=== PATIENT | male | born 1950 | race African-American/Black ===

== ENCOUNTER 2016-12-28 14:39 | Observation (INO) | payer OTHER, MEDICARE ==
[2016-12-28] VITALS (9 sets, daily range): BP systolic 90–143; BP diastolic 57–79; PULSE 58–84; RESP 14–18; TEMP 98.6; O2SAT 95–99
[~2016-12-28] VITALS: Ht 180.3 cm; Wt 80.0 kg
[~2016-12-28 14:39] MED LIST: ASPI81TA81; HYDR12.57 PO; LATA.005%O EACH EYE; LISI10TA3 PO; METH500T3 PO; TAMS0.4C4 PO
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
[2016-12-28] MEDS ORDERED: SODIUM CHLORIDE 0.9% FLUSH 10 ML FLUSH IVF PRN (15:00)
[2016-12-28 15:53] LABS: AUTOMATED NEUTROPHIL # 4.2 TH/MM3 (1.8-7.7); BASOPHIL % 0.2 % (0.0-2.0); EOSINOPHIL # 0.1 TH/MM3 (0-0.4); EOSINOPHIL % 1.3 % (0.0-4.0); HEMATOCRIT 35.9 % (39.0-51.0); LYMPH % 20.2 % (9.0-44.0); LYMPHOCYTE # 1.2 TH/MM3 (1.0-4.8); MEAN CELL VOLUME 103.2 FL (80.0-100.0); MEAN CORPUSCULAR HEMOGLOBIN 34.1 PG (27.0-34.0); MEAN CORPUSCULAR HGB CONC 33.1 % (32.0-36.0); NEUT % 73.3 % (16.0-70.0); PLATELET COUNT 214 TH/MM3 (150-450); RED BLOOD COUNT 3.48 MIL/MM3 (4.50-5.90); RED CELL DISTRIBUTION WIDTH 18.3 % (11.6-17.2); WHITE BLOOD COUNT 5.8 TH/MM3 (4.0-11.0)
[2016-12-28 15:55] LABS: ALT (GPT) 11 U/L (12-78); ANION GAP 6 MEQ/L (5-15); AST (GOT) 7 U/L (15-37); BICARBONATE 31.5 MEQ/L (21.0-32.0); BLOOD UREA NITROGEN 19 MG/DL (7-18); CHLORIDE 106 MEQ/L (98-107); GLOMERULAR FILTRATION RATE 79 ML/MIN (>89); HEMO FLAGS AUTO DIFF; MAGNESIUM 2.4 MG/DL (1.5-2.5); POTASSIUM 4.2 MEQ/L (3.5-5.1); SODIUM (NA) 143 MEQ/L (136-145)
[2016-12-28 15:58] LABS: ALKALINE PHOSPHATASE 59 U/L (45-117); TOTAL BILIRUBIN ADULT 0.4 MG/DL (0.2-1.0)
[2016-12-28 16:03] LABS: CREATINE KINASE 79 U/L (39-308)
--- NOTE | 2016-12-28 16:13 | RADRPT ---
EXAM DATE/TIME: 12/28/2016 15:24 [place] COMPARISON: CHEST SINGLE AP, June 24, 2016, 4:09. INDICATIONS : Chest pain. MEDICAL HISTORY : None. SURGICAL HISTORY : None. ENCOUNTER: Initial ACUITY: 1 day PAIN SCORE: 7/10 LOCATION: Bilateral chest FINDINGS: A single view of the chest demonstrates the lungs to be symmetrically aerated without evidence of mas s, infiltrate or effusion. The cardiomediastinal contours are unremarkable. Osseous structures are intact. CONCLUSION: Normal examination. Ton Cain MD on December 28, 2016 at 16:11 Board Certified Radiologist. This report was verified electronically.
[2016-12-28 16:37] LABS: PLATELET ESTIMATE SMEAR NORMAL (NORMAL); PLATELET MORPHOLOGY NORMAL (NORMAL); SCAN/DIFF AUTO DIFF CONFIRMED
[2016-12-28 17:35] LABS: APTT (PATIENT) 26.8 SEC (24.3-30.1); PROTHROMBIN TIME - PATIENT 10.7 SEC (9.8-11.6)
[2016-12-28] MEDS ORDERED: ONDANSETRON HCL 4 MG/2 ML VIAL IV PUSH PRN (18:45)
[2016-12-28] MEDS ORDERED: ACETAMINOPHEN 325 MG TAB PO PRN (19:45)
[2016-12-28] MEDS ORDERED: SENNOSIDES 8.6 MG TAB PO PRN (19:45)
[2016-12-28] MEDS ORDERED: MAGNESIUM HYDROXIDE SUSP 30 ML CUP PO PRN (19:45)
[2016-12-28] MEDS ORDERED: LACTULOSE SYRUP 20 GM/30 ML CUP PO PRN (19:45)
[2016-12-28] MEDS ORDERED: ONDANSETRON HCL 4 MG/2 ML VIAL IVP PRN (19:45)
[2016-12-28] MEDS ORDERED: BISACODYL 10 MG SUPP RECTAL PRN (19:45)
[2016-12-28] MEDS ORDERED: ACETAMINOPHEN/HYDROcodone 325 MG/5 MG TAB PO PRN (19:45)
[2016-12-28] MEDS ORDERED: NITROGLYCERIN 2% OINT 1 GM PACKET TOPICAL PRN (19:45)
[2016-12-28] MEDS ORDERED: SODIUM CHLORIDE 0.9% FLUSH 10 ML FLUSH IV FLUSH PRN (19:45)
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
[2016-12-28] MEDS: TAMSULOSIN HCL 0.4 MG CAP PO SCH (20:48)
[2016-12-28] MEDS: DOCUSATE SODIUM 50 MG/SENNA 8.6 MG TAB PO SCH (20:50)
[2016-12-28] MEDS: MORPHINE SULFATE 4 MG/ML INJ IV PRN (20:50)
[2016-12-28] MEDS: SODIUM CHLORIDE 0.9% FLUSH 10 ML FLUSH IV FLUSH SCH (20:52)
[2016-12-28] MEDS: LATANOPROST 0.005% OPHT SOLN 2.5 ML BTL EACH EYE SCH (21:00)
[2016-12-28] MEDS ORDERED: RESP: ALBUTEROL 2.5 MG/IPRATROPIUM 0.5 MG NEB (PRN) NEB (21:45)
[2016-12-29] VITALS (10 sets, daily range): BP systolic 98–137; BP diastolic 53–68; PULSE 61–76; RESP 14–20; TEMP 96.8–98.6; O2SAT 95–98
[2016-12-29 07:48] LABS: AUTOMATED NEUTROPHIL # 2.2 TH/MM3 (1.8-7.7); BASOPHIL % 0.2 % (0.0-2.0); EOSINOPHIL # 0.1 TH/MM3 (0-0.4); EOSINOPHIL % 1.9 % (0.0-4.0); HEMATOCRIT 32.2 % (39.0-51.0); HEMO FLAGS DIFF FINAL; LYMPH % 36.2 % (9.0-44.0); LYMPHOCYTE # 1.5 TH/MM3 (1.0-4.8); MEAN CELL VOLUME 103.1 FL (80.0-100.0); MEAN CORPUSCULAR HEMOGLOBIN 34.1 PG (27.0-34.0); MEAN CORPUSCULAR HGB CONC 33.1 % (32.0-36.0); MONO % 6.2 % (0.0-8.0); NEUT % 55.5 % (16.0-70.0); PLATELET COUNT 187 TH/MM3 (150-450); RED BLOOD COUNT 3.13 MIL/MM3 (4.50-5.90); RED CELL DISTRIBUTION WIDTH 18.2 % (11.6-17.2)
[2016-12-29 08:10] LABS: ALT (GPT) 11 U/L (12-78); ANION GAP 9 MEQ/L (5-15); BICARBONATE 28.1 MEQ/L (21.0-32.0); BLOOD UREA NITROGEN 23 MG/DL (7-18); CHLORIDE 105 MEQ/L (98-107); POTASSIUM 4.2 MEQ/L (3.5-5.1); SODIUM (NA) 142 MEQ/L (136-145)
[2016-12-29 08:11] LABS: AST (GOT) 8 U/L (15-37); GLOMERULAR FILTRATION RATE 85 ML/MIN (>89)
[2016-12-29 08:38] LABS: ALKALINE PHOSPHATASE 48 U/L (45-117); HDL CHOLESTEROL 53.7 MG/DL (40.0-60.0); LDL CHOLESTEROL 45 MG/DL (0-99); TOTAL BILIRUBIN ADULT 0.4 MG/DL (0.2-1.0)
[2016-12-29] MEDS: ASPIRIN EC 81 MG TABEC PO SCH (08:59)
[2016-12-29] MEDS: DOCUSATE SODIUM 50 MG/SENNA 8.6 MG TAB PO SCH ×2 (08:59→20:31)
[2016-12-29] MEDS: PRAVASTATIN SOD 40 MG TAB PO SCH (08:59)
[2016-12-29] MEDS: LISINOPRIL 10 MG TAB PO SCH (09:00)
[2016-12-29] MEDS: METOPROLOL TARTRATE 25 MG TAB PO SCH ×2 (09:00→20:31)
[2016-12-29] MEDS: SODIUM CHLORIDE 0.9% FLUSH 10 ML FLUSH IV FLUSH SCH ×2 (09:00→20:30)
[2016-12-29] MEDS: MORPHINE SULFATE 4 MG/ML INJ IV PRN ×2 (09:53→20:32)
--- NOTE | 2016-12-29 12:02 | HHI.PR ---
Subjective Remarks Follow up for chest pain. The patient reports continued ongoing chest pressure located at the left anterior chest, associated with nausea but no vomiting, diaphoresis, or shortness of breath. He is concerned that he has another "blockage". The patient does reports URI 2 weeks ago, coughing a lot with yellow -green sputum however now resolved. He denies any current cough. Denies any worsening chest pain with deep inspiration. Objective Vitals Vital Signs Date Time Temp Pulse Resp B/P Pulse Ox O2 Delivery O2 Flow Rate FiO2 12/29/16 08:25 68 12/29/16 08:17 98.0 65 20 137/68 95 12/29/16 03:32 98.2 61 18 98/53 98 12/28/16 23:26 98.6 68 18 117/70 95 12/28/16 21:28 16 12/28/16 21:02 84 12/28/16 20:35 84 18 143/73 99 12/28/16 19:47 80 16 118/79 99 Room Air 12/28/16 19:30 97 12/28/16 18:47 58 15 112/67 97 Room Air 12/28/16 18:07 68 14 90/57 97 Room Air 12/28/16 15:00 112/71 12/28/16 14:54 20 12/28/16 14:49 71 14 105/66 99 Result Diagram: 12/29/16 0728 12/29/16 0728 Imaging Last Impressions Chest X-Ray 12/28/16 1453 Signed Impressions: Service Date/Time: Wednesday, December 28, 2016 15:24 - CONCLUSION: Normal examination. Ton Cain MD Objective Remarks GENERAL: Well-nourished, well-developed middle aged AA male patient in [facility]. SKIN: Warm and dry. No rash. HEENT: Normocephalic. Atraumatic.Pupils equal and round. Mucous membranes pink and moist. NECK: Supple. Trachea midline. CARDIOVASCULAR: Regular rate and rhythm. S1, S2 noted. No murmur appreciated. No chest wall tenderness to palpation. RESPIRATORY: No accessory muscle use. Clear to auscultation. Breath sounds equal bilaterally. GASTROINTESTINAL: Abdomen soft, non-tender, nondistended. Normoactive bowel sounds x4. MUSCULOSKELETAL: No obvious deformities. Extremities without clubbing, cyanosis , or edema. NEUROLOGICAL: Awake and alert. No obvious cranial nerve deficits. Motor grossly within normal limits. Normal speech. PSYCHIATRIC: Appropriate mood and affect; insight and judgment normal. Medications and IVs Current Medications Medications (Trade) Dose Ordered Sig/Jim Route Start Time Stop Time Status Last Admin (Ecotrin Ec) 81 mg DAILY PO 12/29/16 09:00 12/29/16 08:59 (Pravachol) 40 mg DAILY PO 12/29/16 09:00 12/29/16 08:59 (NS Flush) 2 ml UNSCH PRN IV FLUSH 12/28/16 19:45 (NS Flush) 2 ml BID IV FLUSH 12/28/16 21:00 12/29/16 09:00 (Zofran Inj) 4 mg Q6H PRN IVP 12/28/16 19:45 (Tylenol) 650 mg Q6H PRN PO 12/28/16 19:45 (Cataldo 5-325 Mg) 1 tab Q4H PRN PO 12/28/16 19:45 (Morphine Inj) 2 mg Q3H PRN IV 12/28/16 19:45 12/29/16 09:53 (Dee-Colace) 1 tab BID PO 12/28/16 21:00 12/29/16 08:59 (Milk Of Magnesia Liq) 30 ml Q12H PRN PO 12/28/16 19:45 (Senokot) 17.2 mg Q12H PRN PO 12/28/16 19:45 (Dulcolax Supp) 10 mg DAILY PRN RECTAL 12/28/16 19:45 (Lactulose Liq) 30 ml DAILY PRN PO 12/28/16 19:45 (Nitroglycerin 2% Oint) 0.5 inch Q6HR PRN TOPICAL 12/28/16 19:45 12/28/16 20:04 (Xalatan 0.005% Opth Soln) 1 drop HS EACH EYE 12/28/16 21:00 (Prinivil) 10 mg DAILY PO 12/29/16 09:00 12/29/16 09:00 (Flomax) 0.4 mg HS PO 12/28/16 21:00 12/28/16 20:48 (Lopressor) 12.5 mg Q12HR PO 12/29/16 09:00 12/29/16 09:00 A/P Problem List: (1) Chest pain ICD Code: R07.9 Status: Acute (2) Dehydration ICD Code: E86.0 Status: Acute (3) COPD (chronic obstructive pulmonary disease) ICD Code: J44.9 Status: Chronic (4) Tobacco abuse ICD Code: Z72.0 Status: Acute Assessment and Plan 66-year-old male with a PMH of HTN, COPD, Leukemia, CAD and Tobacco Abuse who presented to the ER with complaints of chest pain starting earlier today. Chest Pain: Acute onset of substernal chest pain, h/o CAD, improved after NTG. ACS ruled out with negative serial cardiac enzymes x3, EKG without acute ischemic changes. Last Cath w/ mild one-vessel disease, normal LF function w/ EF 50% and recommendation for med management. Resume home medications, ASA, Statin, B-junior. NTG/Morphine prn. Patient with ongoing chest pain today, Consult Cardiology. Dehydration: GFR 79, BUN 19, Creatinine normal. IVF for hydration, repeat labs with mild improvement. Avoid nephrotoxins. COPD: Chronic Respiratory Failure. Stable. DuoNeb prn if needed. Tobacco Abuse: Pt counselled. Ativan prn if needed. No NicoDerm to avoid vasoconstriction. DVT Prophylaxis: SCD/Teds. Discharge Planning Await cardiology evaluation. Abby Sánchez PA-C Dec 29, 2016 12:02 pm
--- NOTE | 2016-12-29 12:03 | EKG ---
Date Performed: 12/28/2016 Time Performed: 21:31:34 PTAGE: 66 years EKG: Sinus rhythm NONSPECIFIC T-WAVE ABNORMALITY Since previous tracing, no significant change noted BORDERLINE ECG PREVIOUS TRACING : 12/28/2016 18.36 DOCTOR: Gurpreet Díaz Interpretating Date/Time 12/29/2016 12:01:24
--- NOTE | 2016-12-29 12:03 | EKG ---
Date Performed: 12/28/2016 Time Performed: 18:36:01 PTAGE: 66 years EKG: SINUS BRADYCARDIA NONSPECIFIC T-WAVE ABNORMALITY Since previous tracing, no significant yuniel nge noted BORDERLINE ECG PREVIOUS TRACING : 12/28/2016 14.54 DOCTOR: Gurpreet Díaz Interpretating Date/Time 12/29/2016 12:01:42
--- NOTE | 2016-12-29 12:05 | EKG ---
Date Performed: 12/28/2016 Time Performed: 14:54:49 PTAGE: 66 years EKG: Sinus rhythm Since previous tracing, no significant change noted NORMAL ECG PREVIOUS TRACING : 06/24/2016 09.47 DOCTOR: Gurpreet Díaz Interpretating Date/Time 12/29/2016 12:04:02
--- NOTE | 2016-12-29 14:49 | MB ---
cc: ARELY COBB MD DATE OF CONSULTATION: 12/29/2016. REASON FOR CONSULTATION: Atypical chest pain and right lower extremity edema. HISTORY OF PRESENT ILLNESS: The patient is a very pleasant 66-year-old gentleman who was on bus today when he began having significant right lower extremity edema as well as some chest pressure. Because of these symptoms he presented to the emergency department and was given Lasix and his symptoms have resolved. He is asking for a stress test. He is currently asymptomatic except for a headache following nitroglycerin. No residual chest discomfort, shortness of breath, lightheadedness or dizziness. Of note, Dr. White performed a cardiac catheterization in April of 2015, which showed only mild one-vessel coronary disease. PAST MEDICAL HISTORY: 1. Only mild coronary disease by cardiac catheterization 04/2015. 2. Hypertension. 3. Leukemia. 4. Tobacco abuse. CURRENT MEDICATIONS: 1. Aspirin 81 milligrams daily. 2. Pravachol 40 milligrams daily. 3. Lisinopril 10 milligrams daily. 4. Lopressor 12.5 milligrams twice a day. ALLERGIES: 1. PENICILLIN. 2. ZOLOFT. PHYSICAL EXAMINATION: VITAL SIGNS: Afebrile, pulse 76, respiratory rate 18, blood pressure 117/60 and satting 96 on 2 liters. GENERAL: Pleasant well-appearing -[place] gentleman in no distress. NECK: No JVD. LUNGS: Clear auscultation bilaterally. CARDIOVASCULAR: Regular rhythm. No murmurs appreciated. ABDOMEN: Benign. EXTREMITIES: Trace right lower extremity edema. EKGS: EKG shows sinus rhythm with minor nonspecific S-T changes. LABORATORY DATA Notable for cardiac enzymes negative x3. Sodium 142, potassium 4.2, chloride 105, bicarbonate 20.1, BUN 23, creatinine 1.06, glucose 91. INR is 1.0. White count 4.0, hematocrit 32.2, platelets 187,000. IMAGING STUDIES: Chest x-ray was normal. IMPRESSION: 1. Chest pain. The patient's chest pain is somewhat atypical. He has already had a cardiac catheterization about a year and half ago which showed only mild disease and it is very unlikely he has developed occlusive disease in that time interval. He is requesting a nuclear stress test and I will have this done for him. I will also obtain a CT of the chest to exclude pulmonary embolism given the unilateral lower extremity edema. I will also have his right lower extremity ultrasounded to exclude DVT. If these tests are normal, he could be [facility] Thank you again for the opportunity to participate in this patient's care. MD CHAD Mcintosh/CHAD /2:09 PM /2:45 PM
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
[2016-12-29] MEDS ORDERED: IOHEXOL 350 MG/ML 10 ML VIAL (for RAD DIAG) IV ONE (17:36)
--- NOTE | 2016-12-29 17:46 | RADRPT ---
EXAM DATE/TIME: 12/29/2016 17:30 [facility] COMPARISON: No previous studies available for comparison. INDICATIONS : Chest pain left side and swelling of the leg. IV CONTRAST: 72 cc Omnipaque 350 (iohexol) IV RADIATION DOSE: 9.48 CTDIvol (mGy) MEDICAL HISTORY : Cardiovascular disease. Cerebrovascular disease. Hypertension.Leukemia, TB. SURGICAL HISTORY : None. ENCOUNTER: Initial ACUITY: 2 days PAIN SCALE: 6/10 LOCATION: Left chest TECHNIQUE: Volumetric scanning of the chest was performed using a pulmonary embolism protocol MIP images were re constructed. Using automated exposure control and adjustment of the mA and/or kV according to patien t size, radiation dose was kept as low as reasonably achievable to obtain optimal diagnostic quality images. DICOM format image data is available electronically for review and comparison. FINDINGS: PULMONARY ARTERIES: No filling defects are seen in the pulmonary arteries through the segmental level. LUNGS: There is a 4 mm nodule in the superior segment of the left lower lobe and a 2 mm nodule in the latera l right middle lobe region. PLEURAE: There is no pleural thickening or pleural effusion. MEDIASTINUM: There is good visualization of the great vessels of the middle mediastinum. No evidence of mediastin al or hilar adenopathy/mass. MUSCULOSKELETAL: Within normal limits for patient age. MISCELLANEOUS: The visualized upper abdominal organs demonstrate no acute abnormality. CONCLUSION: 1. No pulmonary embolus. 2. Small bilateral pulmonary nodules. These can be followed with a noncontrast CT examination in 6 mo nths. Ton Cain MD on December 29, 2016 at 17:39 Board Certified Radiologist. This report was verified electronically.
[2016-12-29] MEDS: LATANOPROST 0.005% OPHT SOLN 2.5 ML BTL EACH EYE SCH (20:30)
[2016-12-29] MEDS: TAMSULOSIN HCL 0.4 MG CAP PO SCH (20:31)
[2016-12-30 04:15] VITALS: BP 110/56; PULSE 58; RESP 16; TEMP 98.1; O2SAT 97
[2016-12-30 07:51] VITALS: BP 119/59; PULSE 58; RESP 20; TEMP 97.3; O2SAT 99
[2016-12-30] MEDS ORDERED: SODIUM CHLOR 0.9% 1000 ML INJ 1,000 ML IV SCH (08:00)
[2016-12-30] MEDS ORDERED: REGADENOSON INJ 0.4 MG/5 ML SYR ONE (09:07)
--- NOTE | 2016-12-30 10:30 | HHI.PR ---
Subjective Remarks Follow-up for chest pain. The patient seen after stress test this morning, results pending. The patient reports significant improvement in chest pain since yesterday. He states his shortness of breath is at baseline. He does continue to smoke. He follows [place] [facility]. He does report a recent upper respiratory infection, with resolution of symptoms. The patient takes tramadol for chronic back pain. Objective Vitals Vital Signs Date Time Temp Pulse Resp B/P Pulse Ox O2 Delivery O2 Flow Rate FiO2 12/30/16 07:51 97.3 58 20 119/59 99 12/30/16 04:15 98.1 58 16 110/56 97 12/29/16 23:41 98.6 62 16 121/66 95 12/29/16 20:12 62 12/29/16 19:47 97.7 65 14 124/60 96 12/29/16 19:30 96 12/29/16 15:46 98.2 76 20 118/60 95 12/29/16 12:15 96.8 76 18 117/60 96 12/29/16 10:48 95 21 I/O 12/29/16 12/29/16 12/29/16 12/30/16 12/30/16 12/30/16 07:00 15:00 23:00 07:00 15:00 23:00 Intake Total 960 ml Output Total 1400 ml Balance -440 ml Intake Oral 960 ml Output Urine Total 1400 ml # Voids 1 1 Result Diagram: 12/29/16 0728 12/29/16 0728 Imaging Last Impressions Lower Extremity Ultrasound 12/29/16 0000 Signed Impressions: Service Date/Time: Thursday, December 29, 2016 14:53 - CONCLUSION: No DVT. Ton Cain MD CT Angiography 12/29/16 0000 Signed Impressions: Service Date/Time: Thursday, December 29, 2016 17:30 - CONCLUSION: 1. No pulmonary embolus. 2. Small bilateral pulmonary nodules. These can be followed with a noncontrast CT examination in 6 months. Ton Cain MD Chest X-Ray 12/28/16 1453 Signed Impressions: Service Date/Time: Wednesday, December 28, 2016 15:24 - CONCLUSION: Normal examination. Ton Cain MD Objective Remarks GENERAL: Well-developed well-nourished. In no acute distress. SKIN: Warm and dry. No lesions noted. HEENT: Normocephalic. Pupils equal and round. Mucous membranes pink and moist. CARDIOVASCULAR: Regular rate and rhythm. No murmur appreciated. RESPIRATORY: No accessory muscle use. Clear to auscultation. Breath sounds equal bilaterally. GASTROINTESTINAL: Abdomen soft, non-tender, nondistended. Bowel sounds x4. MUSCULOSKELETAL: No obvious deformities. No clubbing or cyanosis. No edema. NEUROLOGICAL: Awake and alert. Moves upper and lower extremities spontaneously. Normal speech. PSYCHIATRIC: Appropriate mood and affect; insight and judgment normal. A/P Problem List: (1) Chest pain ICD Code: R07.9 Status: Acute (2) Dehydration ICD Code: E86.0 Status: Acute (3) COPD (chronic obstructive pulmonary disease) ICD Code: J44.9 Status: Chronic (4) Tobacco abuse ICD Code: Z72.0 Status: Acute Assessment and Plan 66-year-old male with a PMH of HTN, COPD, Leukemia, CAD and Tobacco Abuse who presented to the ER with complaints of chest pain starting earlier today. Chest Pain: Acute onset of substernal chest pain, h/o CAD, improved after NTG. ACS ruled out with negative serial cardiac enzymes x3, EKG without acute ischemic changes. Last Cath w/ mild one-vessel disease, normal LF function w/ EF 50% and recommendation for med management. Continue ASA. Started B-junior. Lipid panel reviewed with low LDL. Continued chest pain today, continue NTG, change Morphine prn to Tramadol. Cardiology consulted who recommended stress test and pulmonary angiogram. Pulmonary angiogram with a PE. Stress test results pending. Pulmonary nodule: Chest CT showed small bilateral pulmonary nodules with recommendation for repeat CT in 6 months. Patient made aware of the findings and recommendation for outpatient CT. Hypertension: Stop HCTZ and start metoprolol as above. Continue lisinopril and Flomax. Dehydration: GFR 79, BUN 19, Creatinine normal. IVF for hydration, repeat labs with mild improvement. Avoid nephrotoxins. COPD: Chronic, stable. DuoNeb prn if needed. Tobacco Abuse: Counseled patient on cessation. Chronic back pain: Continue tramadol as needed. [facility]up [facility]. DVT Prophylaxis: SCD/Teds. Discharge Planning Possible discharge for PCP and cardiology follow-up with the [facility] if stress test is nonischemic. 1110 stress test with no definite redistribution. Discussed with cardiology, Dr. Arboleda, recommended medical management and [facility] follow[facility]. Discharge home today in stable condition. Tyler Lei Dec 30, 2016 10:29
--- NOTE | 2016-12-30 10:31 | RADRPT ---
EXAM DATE/TIME: 12/30/2016 08:30 [facility] COMPARISON: MYOCARDIAL PERF PHARM SPECT, GATED W/EF, April 29, 2015, 11:55. INDICATIONS : Atypical chest pain. Coronary artery disease. DOSE: 26.2 mCi Tc99m Myoview at stress. 8.1 mCi Tc99m Myoview at rest. 0.4 mg Lexiscan STRESS SYMPTOMS: Shortness of breath. EJECTION FRACTION: 57% MEDICAL HISTORY : Hypertension. Stroke Leukemia. SURGICAL HISTORY : Coronary artery stent. Thyroidectomy. ENCOUNTER: Initial ACUITY: 1 day PAIN SCALE: 3/10 LOCATION: Bilateral chest TECHNIQUE: The patient underwent pharmacologic stress with infusion of prescribed dose. Continuous ECG tracing was monitored during stress. Gated SPECT imaging was performed after stress and conventional SPECT i maging was performed at rest. The examination was performed on a SPECT/CT scanner, both attenuation and non-corrected datasets were reviewed. FINDINGS: DISTRIBUTION: The maximum perfused segment at stress is in the posterior basal wall. PERFUSION STUDY: There is moderately diminished relative radiotracer accumulation in the inferior wall and cardiac ape x. No convincing redistribution. GATED STUDY: There is intact wall motion and thickening without hypokinetic or dyskinetic segments. CONCLUSION: Small to moderate size moderate severity inferior and apical perfusion abnormality without definite r edistribution. RISK CATEGORY: Intermediate (1-3% Annual Mortality Rate) Ton Rock MD on December 30, 2016 at 10:21 Board Certified Radiologist. This report was verified electronically.
[2016-12-30] MEDS: MORPHINE SULFATE 4 MG/ML INJ IV PRN (10:59)
[2016-12-30 11:04] VITALS: RESP 20
[2016-12-30] MEDS: DOCUSATE SODIUM 50 MG/SENNA 8.6 MG TAB PO SCH (11:08)
[2016-12-30] MEDS: PRAVASTATIN SOD 40 MG TAB PO SCH (11:08)
[2016-12-30] MEDS: METOPROLOL TARTRATE 25 MG TAB PO SCH (11:09)
[2016-12-30] MEDS: ASPIRIN EC 81 MG TABEC PO SCH (11:09)
[2016-12-30] MEDS: LISINOPRIL 10 MG TAB PO SCH (11:09)
[2016-12-30] MEDS ORDERED: METO25TA3 PO (11:13)
[2016-12-30] MEDS ORDERED: TRAM50TA PO (11:35)
[2016-12-30] MEDS ORDERED: traMADol HCL 50 MG TAB PO PRN (13:30)
[2016-12-30 16:06] VITALS: PULSE 58
== END 2016-12-30 15:42 | disposition home or self-care (01) ==
LOC: NEPC 14:39 → NEDA 18:03 → NEPHCDU 20:18
PROVIDERS: ADMIT Hospitalist; ATTEND Hospitalist
DX: R07.89 Other chest pain (principal); E86.0 Dehydration; R06.02 Shortness of breath; R91.8 Other nonspecific abnormal finding of lung field; D64.9 Anemia, unspecified; R00.1 Bradycardia, unspecified; R11.0 Nausea; R60.0 Localized edema; I25.119 Atherosclerotic heart disease of native coronary artery with unspecified angina pectoris; I10 Essential (primary) hypertension; E78.00 Pure hypercholesterolemia, unspecified; J44.9 Chronic obstructive pulmonary disease, unspecified; J96.10 Chronic respiratory failure, unspecified whether with hypoxia or hypercapnia; E89.0 Postprocedural hypothyroidism; K21.9 Gastro-esophageal reflux disease without esophagitis; F32.9 Major depressive disorder, single episode, unspecified; F43.10 Post-traumatic stress disorder, unspecified; M54.9 Dorsalgia, unspecified; G89.29 Other chronic pain; H40.9 Unspecified glaucoma; N40.1 Benign prostatic hyperplasia with lower urinary tract symptoms; R32 Unspecified urinary incontinence; M19.90 Unspecified osteoarthritis, unspecified site; F17.200 Nicotine dependence, unspecified, uncomplicated; Z95.5 Presence of coronary angioplasty implant and graft; Z86.73 Personal history of transient ischemic attack (TIA), and cerebral infarction without residual deficits; Z79.899 Other long term (current) drug therapy; Z79.82 Long term (current) use of aspirin; Z79.01 Long term (current) use of anticoagulants; Z93.3 Colostomy status; Z85.6 Personal history of leukemia; Z86.11 Personal history of tuberculosis
CPT/HCPCS: 71010; 71275; 76937; 78452; 80053; 80061; 82550; 82607; 83735; 84484; 85025; 85610; 85730; 93005; 93017; 93971; 97161; 99285; A9502; G0378; G8987; G8988; J2270; J2785; J7030; Q9967

== ENCOUNTER 2016-12-30 17:06 | Observation (INO) | payer MEDICARE, OTHER ==
[~2016-12-30] VITALS: Ht 175.3 cm; Wt 84.0 kg
[~2016-12-30 17:06] MED LIST changes: +METO25TA3 PO; +TRAM50TA PO
[2016-12-30 17:16] VITALS: BP 122/59; PULSE 57; RESP 16; TEMP 98.3; O2SAT 95
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
[2016-12-30] MEDS ORDERED: SODIUM CHLORIDE 0.9% FLUSH 10 ML FLUSH IVF PRN (17:30)
[2016-12-30 17:50] VITALS: O2SAT 98
--- NOTE | 2016-12-30 17:54 | RADRPT ---
EXAM DATE/TIME: 12/30/2016 17:46 [facility] COMPARISON: CHEST SINGLE AP, December 28, 2016, 15:24. INDICATIONS : Chest pain. MEDICAL HISTORY : None. SURGICAL HISTORY : None. ENCOUNTER: Initial ACUITY: 3 days PAIN SCORE: 9/10 LOCATION: middle chest. FINDINGS: A single view of the chest demonstrates the lungs to be symmetrically aerated without evidence of mas s, infiltrate or effusion. The cardiomediastinal contours are unremarkable. Osseous structures are intact. CONCLUSION: No acute disease. Mihir Gresham MD FACR on December 30, 2016 at 17:51 Board Certified Radiologist. This report was verified electronically.
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
[2016-12-30 18:42] LABS: HEMATOCRIT 35.2 % (39.0-51.0); MEAN CELL VOLUME 106.1 FL (80.0-100.0); MEAN CORPUSCULAR HEMOGLOBIN 33.8 PG (27.0-34.0); MEAN CORPUSCULAR HGB CONC 31.9 % (32.0-36.0); PLATELET COUNT 192 TH/MM3 (150-450); RED BLOOD COUNT 3.32 MIL/MM3 (4.50-5.90); RED CELL DISTRIBUTION WIDTH 18.2 % (11.6-17.2); WHITE BLOOD COUNT 7.1 TH/MM3 (4.0-11.0)
[2016-12-30 18:43] LABS: HEMO FLAGS AUTO DIFF
[2016-12-30 18:50] LABS: APTT (PATIENT) 20.6 SEC (24.3-30.1); PROTHROMBIN TIME - PATIENT 10.7 SEC (9.8-11.6)
[2016-12-30 19:16] LABS: ALKALINE PHOSPHATASE 54 U/L (45-117); ALT (GPT) 17 U/L (12-78); ANION GAP 6 MEQ/L (5-15); AST (GOT) 13 U/L (15-37); BICARBONATE 32.6 MEQ/L (21.0-32.0); BLOOD UREA NITROGEN 19 MG/DL (7-18); CHLORIDE 102 MEQ/L (98-107); GLOMERULAR FILTRATION RATE 75 ML/MIN (>89); MAGNESIUM 2.2 MG/DL (1.5-2.5); POTASSIUM 3.9 MEQ/L (3.5-5.1); SODIUM (NA) 141 MEQ/L (136-145); TOTAL BILIRUBIN ADULT 0.3 MG/DL (0.2-1.0)
[2016-12-30 19:24] LABS: CORRECTED NUCLEATED RBC 1 /100 WBC (0-0); EOSINOPHILS 2 % (0-4); NEUTROPHIL # MANUAL DIFF 4.8 TH/MM3 (1.8-7.7); PLATELET ESTIMATE SMEAR NORMAL (NORMAL); PLATELET MORPHOLOGY NORMAL (NORMAL); POLYS (SEG NEUTROPHILS) 68 % (16-70); SCAN/DIFF FINAL DIFF MANUAL; WBC DIFF SAMPLE 100
[2016-12-30 19:37] VITALS: BP 110/63; PULSE 74; RESP 20; O2SAT 98
[2016-12-30] MEDS ORDERED: traMADol HCL 50 MG TAB PO PRN (20:00)
[2016-12-30] MEDS ORDERED: SODIUM CHLORIDE 0.9% FLUSH 10 ML FLUSH IV FLUSH PRN (20:00)
[2016-12-30] MEDS ORDERED: NALOXONE HCL 0.4 MG/ML AMP IV PRN (20:00)
[2016-12-30] MEDS: TAMSULOSIN HCL 0.4 MG CAP PO SCH (21:00)
[2016-12-30] MEDS: SODIUM CHLORIDE 0.9% FLUSH 10 ML FLUSH IV FLUSH SCH (21:00)
[2016-12-30 23:22] VITALS: BP 109/53; PULSE 68; RESP 18; TEMP 98; O2SAT 97
[2016-12-31] VITALS (8 sets, daily range): BP systolic 97–144; BP diastolic 50–72; PULSE 55–80; RESP 16–20; TEMP 97.7–98.5; O2SAT 96–100
[2016-12-31] MEDS ORDERED: ACETAMINOPHEN 325 MG TAB PO PRN (07:30)
[2016-12-31 07:33] LABS: AUTOMATED NEUTROPHIL # 2.7 TH/MM3 (1.8-7.7); BASOPHIL % 0.3 % (0.0-2.0); EOSINOPHIL # 0.1 TH/MM3 (0-0.4); EOSINOPHIL % 1.7 % (0.0-4.0); HEMATOCRIT 33.9 % (39.0-51.0); HEMO FLAGS DIFF FINAL; LYMPH % 32.9 % (9.0-44.0); LYMPHOCYTE # 1.5 TH/MM3 (1.0-4.8); MEAN CELL VOLUME 103.8 FL (80.0-100.0); MEAN CORPUSCULAR HEMOGLOBIN 34.4 PG (27.0-34.0); MEAN CORPUSCULAR HGB CONC 33.2 % (32.0-36.0); MONO % 6.2 % (0.0-8.0); NEUT % 58.9 % (16.0-70.0); PLATELET COUNT 177 TH/MM3 (150-450); RED BLOOD COUNT 3.26 MIL/MM3 (4.50-5.90); RED CELL DISTRIBUTION WIDTH 18.2 % (11.6-17.2); WHITE BLOOD COUNT 4.7 TH/MM3 (4.0-11.0)
[2016-12-31 07:53] LABS: BICARBONATE 31.1 MEQ/L (21.0-32.0); POTASSIUM 4.2 MEQ/L (3.5-5.1)
[2016-12-31] MEDS ORDERED: LISINOPRIL 10 MG TAB PO SCH (09:00)
--- NOTE | 2016-12-31 09:55 | HHI.HP ---
[facility] Primary Care Physician Unknown Admission Diagnosis Syncope vs Seizure Diagnoses: Travel History International Travel<30 Days: No Contact w/Intl Traveler <30 Da: No Traveled to Known Affected Are: No History of Present Illness Mr. Puentes is a 66 year old male. He was admitted secondary to a syncopal episode. She had previously been hospitalized for chest pain workup which was negative. He was discharged yesterday and upon arriving to his [facility]pc she had a syncopal episode with loss of bowel and bladder. He has no prior history of seizures. Etiology may be related to beta junior which was a new treatment for him. Today he is feeling back to his baseline. No reports of chest pain. No trauma. He has a pending echocardiogram and a pending carotid ultrasound Doppler. Orthostatic blood pressure checks are also pending. Review of Systems Constitutional: DENIES: Fatigue, Fever, Weight loss, Chills Eyes: DENIES: Blurred vision, Diplopia, Eye pain, Vision loss Ears, nose, mouth, throat: DENIES: Tinnitus, Hearing loss, Vertigo Respiratory: DENIES: Cough, Wheezing, Shortness of breath Cardiovascular: COMPLAINS OF: Syncope, DENIES: Chest pain, Palpitations Gastrointestinal: DENIES: Abdominal pain, Black stools, Bloody stools Musculoskeletal: DENIES: Joint pain, Muscle aches Integumentary: DENIES: Abnormal pigmentation Hematologic/lymphatic: DENIES: Bruising Immunologic/allergic: DENIES: Eczema Neurologic: DENIES: Abnormal gait Psychiatric: DENIES: Anxiety, Confusion Past Family Social History Past Medical History Hypertension COPD leukemia history coronary artery disease Past Surgical History Cardiac stent Thyroidectomy Reported Medications Reported Meds & Active Scripts Active Tramadol (Tramadol HCl) 50 Mg Tab 50 Mg PO Q8H PRN Metoprolol Tartrate 25 Mg Tab 12.5 Mg PO Q12HR Reported Methocarbamol Unknown Strength Tab Unknown Dose PO QID Xalatan Opth Drops (Latanoprost) 0.005% Drops 1 Drop EACH EYE HS Aspir-81 (Aspirin) 81 Mg Tabdr Tamsulosin (Tamsulosin HCl) 0.4 Mg Cap 0.4 Mg PO HS Lisinopril 10 Mg Tab 10 Mg PO DAILY Allergies: Coded Allergies: Penicillin (Verified Allergy, Severe, Anaphylaxis, 12/28/16) Zoloft (Verified Allergy, Intermediate, Swelling, 12/28/16) Active Ordered Medications Administered Medications Medications (Trade) Dose Ordered Sig/Jim Route PRN Reason Start Time Stop Time Status Last Admin Dose Admin Sodium Chloride (NS Flush) 2 ml BID IV FLUSH 12/30/16 21:00 12/30/16 21:00 Tamsulosin HCl (Flomax) 0.4 mg HS PO 12/30/16 21:00 12/30/16 21:00 Family History None, no diabetes or coronary artery disease Social History Occasional alcohol use Smoking one half pack per day No drug abuse Physical Exam Vital Signs Vital Signs Date Time Temp Pulse Resp B/P Pulse Ox O2 Delivery O2 Flow Rate FiO2 12/31/16 07:27 97.7 69 20 109/58 97 12/31/16 05:23 97.8 55 16 97/50 98 12/31/16 00:37 78 12/30/16 23:22 98.0 68 18 109/53 97 12/30/16 19:37 74 20 110/63 98 Nasal Cannula 12/30/16 17:50 98 Room Air 12/30/16 17:16 98.3 57 16 122/59 95 Physical Exam GENERAL: NAD, A&Ox3 HEAD: Normocephalic. NECK: Supple, trachea midline. No lymphadenopathy. EYES: No scleral icterus. No injection or drainage. CARDIOVASCULAR: Regular rate and rhythm without murmurs, gallops, or rubs. RESPIRATORY: Breath sounds equal bilaterally. No accessory muscle use. GASTROINTESTINAL: Abdomen soft, non-tender, nondistended. MUSCULOSKELETAL: No cyanosis, or edema. SKIN: Warm and dry. NEURO: No focal neurological deficitis. Laboratory Laboratory Tests Test 12/30/16 12/31/16 18:20 06:40 White Blood Count 7.1 4.7 Red Blood Count 3.32 3.26 Hemoglobin 11.2 11.2 Hematocrit 35.2 33.9 Mean Corpuscular Volume 106.1 103.8 Mean Corpuscular Hemoglobin 33.8 34.4 Mean Corpuscular Hemoglobin 31.9 33.2 Concent Red Cell Distribution Width 18.2 18.2 Platelet Count 192 177 Mean Platelet Volume 8.9 8.7 Neutrophils (%) (Auto) 58.9 Lymphocytes (%) (Auto) 32.9 Monocytes (%) (Auto) 6.2 Eosinophils (%) (Auto) 1.7 Basophils (%) (Auto) 0.3 Neutrophils # (Auto) 2.7 Lymphocytes # (Auto) 1.5 Monocytes # (Auto) 0.3 Eosinophils # (Auto) 0.1 Basophils # (Auto) 0.0 CBC Comment AUTO DIFF DIFF FINAL Differential Total Cells 100 Counted Neutrophils % (Manual) 68 Lymphocytes % 25 Monocytes % 5 Eosinophils % 2 Neutrophils # (Manual) 4.8 Nucleated Red Blood Cells 1 Differential Comment FINAL DIFF MANUAL Platelet Estimate NORMAL Platelet Morphology Comment NORMAL Prothrombin Time 10.7 Prothromb Time International 1.0 Ratio Activated Partial 20.6 Thromboplast Time Sodium Level 141 145 Potassium Level 3.9 4.2 Chloride Level 102 107 Carbon Dioxide Level 32.6 31.1 Anion Gap 6 7 Blood Urea Nitrogen 19 17 Creatinine 1.18 1.02 Estimat Glomerular Filtration 75 89 Rate Random Glucose 89 79 Calcium Level 8.4 8.8 Magnesium Level 2.2 Total Bilirubin 0.3 Aspartate Amino Transf 13 (AST/SGOT) Alanine Aminotransferase 17 (ALT/SGPT) Alkaline Phosphatase 54 Troponin I LESS THAN 0.02 Total Protein 6.8 Albumin 3.2 Result Diagram: 12/31/1640 12/31/1640 Assessment and Plan Problem List: (1) Syncope ICD Code: R55 Status: Acute Assessment and Plan Assessment and plan 66-year-old male admitted with syncopal episode Syncope Etiology suspected to be related to need treatment of metoprolol Echocardiogram Carotid ultrasound Follow for recurrence Orthostatic blood pressure checks Hold metoprolol Hypertension Metoprolol held Follow blood pressures Adjust treatment if needed Allow blood pressures to be in high normal range given recent syncope COPD No exacerbation No change to baseline treatment leukemia history No signs of active disease Follow as an outpatient coronary artery disease Cardiac workup has occurred in the past 2 days Negative cardiac workup No further workup needed DVT prophylaxis SCDs Problem Qualifiers (1) Syncope: Qualified Code: R55 - Syncope, unspecified syncope type Steven Roach MD Dec 31, 2016 9:55 am
--- NOTE | 2016-12-31 11:38 | ECHRPT ---
Indication: Chest pain, unspecified CONCLUSIONS Normal left ventricular size. Mild concentric left ventricular hypertrophy. The left ventricular systolic function is low normal with an estimated ejection fraction in the rang e of 50- 55%. No significant valvular abnormalities. BP: 109 / 58 HR: 69 Rhythm: Sinus MEASUREMENTS (Male / Female) Normal Values Technical Quality:Fair 2D ECHO LV Diastolic Diameter PLAX 4.0 cm 4.2 - 5.9 / 3.9 - 5.3 cm LV Systolic Diameter PLAX 3.1 cm IVS Diastolic Thickness 1.0 cm 0.6 - 1.0 / 0.6 - 0.9 cm LVPW Diastolic Thickness 0.7 cm 0.6 - 1.0 / 0.6 - 0.9 cm LV Relative Wall Thickness 0.4 LA Systolic Diameter LX 3.7 cm 3.0 - 4.0 / 2.7 - 3.8 cm M-MODE AV Cusp Separation MM 1.9 cm DOPPLER Mitral E Point Velocity 72.6 cm/s Mitral A Point Velocity 80.5 cm/s Mitral E to A Ratio 0.9 TR Peak Velocity 197.0 cm/s TR Peak Gradient 15.5 mmHg FINDINGS LEFT VENTRICLE Normal left ventricular size. Mild concentric left ventricular hypertrophy. The left ventricular systolic function is low normal with an estimated ejection fraction in the rang e of 50- 55%. RIGHT VENTRICLE Normal right ventricular size and systolic function. LEFT ATRIUM The left atrial size is normal. RIGHT ATRIUM The right atrial size is normal. ATRIAL SEPTUM Normal atrial septal thickness without atrial level shunting by limited color doppler interrogation. AORTA The aortic root and proximal ascending aorta are normal in size on limited imaging. MITRAL VALVE Mitral annular calcification is present. AORTIC VALVE Trileaflet aortic valve. No aortic valve stenosis or regurgitation. TRICUSPID VALVE Structurally normal tricuspid valve. No tricuspid valve stenosis or regurgitation. PULMONARY VALVE The pulmonary valve is not well visualized. VESSELS The inferior vena cava is normal in size. PERICARDIUM No pericardial effusion. Arash Silver MD (Electronically Signed) Final Date:31 December 2016 11:38
[2016-12-31] MEDS: SODIUM CHLORIDE 0.9% FLUSH 10 ML FLUSH IV FLUSH SCH ×2 (11:54→20:11)
--- NOTE | 2016-12-31 15:30 | RADRPT ---
EXAM DATE/TIME: 12/31/2016 14:22 [place] COMPARISON: No previous studies available for comparison. INDICATIONS : Syncope. MEDICAL HISTORY : Gastroesophageal reflux disease. Hypertension. Chronic obstructive pulmonary disease. Tuberculosis. A rthritis. BPH. Anemia. Leukemia. MRSA. SURGICAL HISTORY : Coronary artery stent. Thyroidectomy. Cardiac cath. Colon surgery. ENCOUNTER: Initial ACUITY: 1 day PAIN SCORE: 0/10 LOCATION: Bilateral neck PEAK SYSTOLIC VELOCITIES (cm/sec): ICA/CCA RATIO: Right: 1.0 Left: 1.0 ICA: Right: 122 Left: 122 CCA: Right: 124 Left: 127 ECA: Right: 117 Left: 94 VERTEBRAL: Right: 106 antegrade Left: 114 antegrade Elevated flow velocities and ICA/CCA ratios have been found to correlate with increased degrees of vessel stenosis, calculated as percentage of diameter relative to a normal segment of distal ICA/CCA FINDINGS: RIGHT CAROTID: No significant stenosis is visualized. The waveforms are within normal limits. LEFT CAROTID: No significant stenosis is visualized. The waveforms are within normal limits. VERTEBRAL ARTERIES: Antegrade flow is seen in both vertebral arteries. MISCELLANEOUS: None. CONCLUSION: 1. No significant carotid flow limiting stenosis. 2. Antegrade vertebral artery flow bilaterally. Jordan Dumont MD on December 31, 2016 at 15:24 Board Certified Radiologist. This report was verified electronically.
--- NOTE | 2016-12-31 17:24 | EKG ---
Date Performed: 12/30/2016 Time Performed: 17:24:59 PTAGE: 66 years EKG: SINUS BRADYCARDIA BORDERLINE ECG PREVIOUS TRACING 12/28/2016 @ 21.31 Compared to prior tracing no significant change DOCTOR: Kye White Interpretating Date/Time 12/31/2016 17:21:49
[2016-12-31] MEDS: TAMSULOSIN HCL 0.4 MG CAP PO SCH (20:11)
--- NOTE | 2016-12-31 21:25 | MG ---
cc: REBECA BEST M.D. Lab No: Date: 12/31/2016 Age: Sex: M Race: REQUESTING PHYSICIAN Dr. [facility]. INTRODUCTION An EEG was obtained on this 66-year-old patient being evaluated for syncope. MEDICATIONS Flomax. DESCRIPTION The patient is awake and asleep during this study. There are 8-10 per second alpha rhythms posteriorly. Minor background amplitude asymmetry, the left at times being slightly higher than right. There are beta rhythms diffusely. Photic stimulation disclosed a bilateral driving response. The patient drowses and there is more beta rhythms as well as some theta activity during the drowsiness recording. Hyperventilation was unremarkable. INTERPRETATION Normal awake and light sleep EEG. Rebeca Best MD OFC/KK /7:15 PM /9:24 PM
[2017-01-01 00:55] VITALS: PULSE 60
[2017-01-01 04:42] VITALS: BP 125/62; PULSE 61; RESP 18; TEMP 98.5; O2SAT 98
--- NOTE | 2017-01-01 07:31 | HHI.DCPOC ---
Discharge Care Plan Diagnosis: (1) Syncope (2) Hypertension (3) Dehydration Goals to Promote Your Health * To prevent worsening of your condition and complications * To maintain your health at the optimal level Directions to Meet Your Goals Take your medications as prescribed Follow your dietary instruction Follow activity as directed Keep your appointments as scheduled Take your immunizations and boosters as scheduled If your symptoms worsen call your PCP, if no PCP go to Urgent Care Center or Emergency Room Smoking is Dangerous to Your Health. Avoid second hand smoke Call the 24-hour hour crisis hotline for domestic abuse at Abby Sánchez PA-C Jan 01, 2017 07:31
[2017-01-01] MEDS: SODIUM CHLORIDE 0.9% FLUSH 10 ML FLUSH IV FLUSH SCH (07:44)
[2017-01-01 07:46] VITALS: BP 126/75; PULSE 60; RESP 16; TEMP 98.1; O2SAT 100
--- NOTE | 2017-01-01 07:53 | HHI.PR ---
Subjective Remarks Follow up for syncope. The patient is awake, alert, chatting on the phone upon my arrival. He complains of a mild frontal headache, requesting medication. Otherwise he denies any other medical complaints including no lightheadedness, dizziness, chest pain, palpitations, shortness of breath, or abdominal complaints. Objective Vitals Vital Signs Date Time Temp Pulse Resp B/P Pulse Ox O2 Delivery O2 Flow Rate FiO2 01/01/17 04:42 98.5 61 18 125/62 98 01/01/17 00:55 60 12/31/16 23:06 98.4 62 18 144/69 100 12/31/16 19:31 98.5 74 18 127/64 99 135/72 121/60 12/31/16 16:11 98.2 80 20 124/69 97 12/31/16 11:41 97.7 69 20 109/53 96 12/31/16 08:00 64 I/O 12/31/16 12/31/16 12/31/16 01/01/17 01/01/17 01/01/17 07:00 15:00 23:00 07:00 15:00 23:00 Intake Total 200 ml 800 ml 240 ml Output Total 1100 ml 400 ml Balance 200 ml -300 ml -160 ml Intake Oral 200 ml 800 ml 240 ml Output Urine Total 1100 ml 400 ml Stool Total 0 ml Result Diagram: 12/31/16 0640 12/31/16 0640 Imaging Last Impressions Carotid Artery Ultrasound 12/31/16 0000 Signed Impressions: Service Date/Time: Saturday, December 31, 2016 14:22 - CONCLUSION: 1. No significant carotid flow limiting stenosis. 2. Antegrade vertebral artery flow bilaterally. Jordan Dumont MD Head CT 12/30/161723 Signed Impressions: Service Date/Time: Friday, December 30, 2016 17:49 - CONCLUSION: Unremarkable noncontrast CT. Wale Whitehead MD Chest X-Ray 12/30/161723 Signed Impressions: Service Date/Time: Friday, December 30, 2016 17:46 - CONCLUSION: No acute disease. Mihir Gresham MD FACR Objective Remarks GENERAL: Well-nourished, well-developed middle aged male patient in [facility]. SKIN: Warm and dry. No rash. HEENT: Normocephalic. Atraumatic.Pupils equal and round. Mucous membranes pink and moist. NECK: Supple. Trachea midline. CARDIOVASCULAR: Regular rate and rhythm. S1, S2 noted. No murmur appreciated. RESPIRATORY: No accessory muscle use. Clear to auscultation. Breath sounds equal bilaterally. GASTROINTESTINAL: Abdomen soft, non-tender, nondistended. Normoactive bowel sounds x4. MUSCULOSKELETAL: No obvious deformities. Extremities without clubbing, cyanosis , or edema. NEUROLOGICAL: Awake and alert. No obvious cranial nerve deficits. Motor grossly within normal limits. 5/5 muscle strength in bilateral upper and lower extremities. Normal speech. PSYCHIATRIC: Appropriate mood and affect; insight and judgment normal. Medications and IVs Current Medications Medications (Trade) Dose Ordered Sig/Jim Route Start Time Stop Time Status Last Admin (NS Flush) 2 ml UNSCH PRN IV FLUSH 12/30/16 20:00 (NS Flush) 2 ml BID IV FLUSH 12/30/16 21:00 01/01/17 07:44 (Narcan Inj) 0.4 mg UNSCH PRN IV 12/30/16 20:00 (Prinivil) 10 mg DAILY PO 12/31/16 09:00 (Flomax) 0.4 mg HS PO 12/30/16 21:00 12/31/16 20:11 (Ultram) 50 mg Q8H PRN PO 12/30/16 20:00 Hold (Pneumovax-23 Inj) 25 mcg ONCE ONCE IM 01/01/17 10:00 01/01/17 10:01 (Tylenol) 650 mg Q4H PRN PO 12/31/16 07:30 01/01/17 07:43 A/P Problem List: (1) Syncope ICD Code: R55 Status: Acute Assessment and Plan 66-year-old male admitted with syncopal episode Syncope: suspect related to new treatment of metoprolol started on previous admission. Echocardiogram wnl with EF 50-55% EEG unremarkable Carotid ultrasound unremarkable with no significant stenosis Held patient's metoprolol, BP improved Orthostatic blood pressures negative No recurrence during admission Hypertension: with episodes of hypotension, suspect secondary to new treatment with beta junior Metoprolol held Follow blood pressures, improved Allow blood pressures to be in high normal range given recent syncope COPD: does not appear to be in exacerbation No change to baseline treatment Leukemia history: No signs of active disease Follow as an outpatient Coronary Artery Disease: Cardiac workup has occurred in the past 2 days with negative cardiac workup No further workup needed, no complaints of chest pain Headache, mild Give tylenol prn DVT prophylaxis SCDs Discharge Planning Discharge patient to home Condition on discharge: Improved Heart Healthy Diet as tolerated Ad Kyung activity Rx written: no new meds, discontinue metoprolol Follow-up with primary care physician and cardiology within 1 wek Problem Qualifiers (1) Syncope: Qualified Code: R55 - Syncope, unspecified syncope type Abby Sánchez PA-C Jan 01, 2017 7:52 am
[2017-01-01] MEDS ORDERED: PNEUMOCOCCAL POLYVALENT INJ 25 MCG/0.5 ML SYR IM ONE (10:00)
== END 2017-01-01 11:36 | disposition home or self-care (01) ==
LOC: NEPE 17:06 → NEDA 19:38 → NEPHCDU 22:47
PROVIDERS: ADMIT Hospitalist; ATTEND Hospitalist
DX: R55 Syncope and collapse (principal); E86.0 Dehydration; R07.9 Chest pain, unspecified; R61 Generalized hyperhidrosis; R11.0 Nausea; R00.1 Bradycardia, unspecified; D64.9 Anemia, unspecified; I95.9 Hypotension, unspecified; I25.10 Atherosclerotic heart disease of native coronary artery without angina pectoris; I10 Essential (primary) hypertension; E78.00 Pure hypercholesterolemia, unspecified; J44.9 Chronic obstructive pulmonary disease, unspecified; K21.9 Gastro-esophageal reflux disease without esophagitis; F32.9 Major depressive disorder, single episode, unspecified; M19.90 Unspecified osteoarthritis, unspecified site; N40.0 Benign prostatic hyperplasia without lower urinary tract symptoms; F17.200 Nicotine dependence, unspecified, uncomplicated; Z59.0 Homelessness; Z85.6 Personal history of leukemia; Z95.5 Presence of coronary angioplasty implant and graft; Z79.899 Other long term (current) drug therapy; Z79.82 Long term (current) use of aspirin; Z86.73 Personal history of transient ischemic attack (TIA), and cerebral infarction without residual deficits; Z86.14 Personal history of Methicillin resistant Staphylococcus aureus infection
CPT/HCPCS: 70450; 71010; 80048; 80053; 83735; 84484; 85007; 85025; 85027; 85610; 85730; 93005; 93306; 93880; 95819; 99285; G0378

== ENCOUNTER 2017-01-31 14:14 | Observation (INO) | payer OTHER, MEDICARE ==
[~2017-01-31] VITALS: Ht 175.3 cm; Wt 84.0 kg
[2017-01-31] VITALS (8 sets, daily range): BP systolic 130–162; BP diastolic 62–86; PULSE 66–88; RESP 18–20; TEMP 97.5–98.7; O2SAT 95–99
[~2017-01-31 14:14] MED LIST changes: -HYDR12.57 PO; -METH500T3 PO; -METO25TA3 PO
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
[2017-01-31] MEDS ORDERED: FUROSEMIDE 40 MG/4 ML VIAL IVP ONE (15:00)
[2017-01-31] MEDS ORDERED: SODIUM CHLORIDE 0.9% FLUSH 10 ML FLUSH IVF PRN (15:00)
[2017-01-31 15:39] LABS: APTT (PATIENT) 21.7 SEC (24.3-30.1); PROTHROMBIN TIME - PATIENT 10.5 SEC (9.8-11.6)
[2017-01-31 15:46] LABS: AUTOMATED NEUTROPHIL # 2.3 TH/MM3 (1.8-7.7); BASOPHIL % 0.3 % (0.0-2.0); EOSINOPHIL # 0.1 TH/MM3 (0-0.4); EOSINOPHIL % 2.4 % (0.0-4.0); HEMATOCRIT 32.5 % (39.0-51.0); HEMO FLAGS DIFF FINAL; LYMPH % 35.9 % (9.0-44.0); LYMPHOCYTE # 1.5 TH/MM3 (1.0-4.8); MEAN CELL VOLUME 107.1 FL (80.0-100.0); MEAN CORPUSCULAR HEMOGLOBIN 35.4 PG (27.0-34.0); MONO % 5.7 % (0.0-8.0); NEUT % 55.7 % (16.0-70.0); PLATELET COUNT 195 TH/MM3 (150-450); RED BLOOD COUNT 3.03 MIL/MM3 (4.50-5.90); WHITE BLOOD COUNT 4.1 TH/MM3 (4.0-11.0)
--- NOTE | 2017-01-31 15:56 | RADRPT ---
EXAM DATE/TIME: 01/31/2017 14:55 [facility] COMPARISON: No previous studies available for comparison. INDICATIONS : Bilateral leg swelling and pain. MEDICAL HISTORY : Benign prostatic hyperplasia, (BPH) Chronic obstructive pulmonary disease. Gastroesophageal reflux di sease. Tuberculosis. Arthritis. Hypertension. Anemia. Leukemia. MRSA. Glaucoma. Cerebrovascular accid ent. Syncope. Anticoagulant therapy. Chemotherapy. Measles. SURGICAL HISTORY : Coronary artery stent.Thyroidectomy. Colon surgery. ENCOUNTER: Subsequent ACUITY: 1 month PAIN SCORE: 4/10 LOCATION: Bilateral leg. TECHNIQUE: Venous ultrasound of the left and right leg was performed from the inguinal ligament to the proximal calf. Real-time, color Doppler and spectral tracing, compression and augmentation techniques were us ed. FINDINGS: RIGHT LEG: There is normal compressibility of the deep venous system from the inguinal region to the proximal ca lf. No echogenic clot is seen in the lumen of the common femoral, femoral, popliteal, and posterior tibial veins. There is a normal response of the venous system to proximal and distal augmentation an d respiration. LEFT LEG: There is normal compressibility of the deep venous system from the inguinal region to the proximal ca lf. No echogenic clot is seen in the lumen of the common femoral, femoral, popliteal, and posterior tibial veins. There is a normal response of the venous system to proximal and distal augmentation an d respiration. CONCLUSION: Normal examination. Susie Linton MD on January 31, 2017 at 15:53 Board Certified Radiologist. This report was verified electronically.
--- NOTE | 2017-01-31 16:31 | RADRPT ---
EXAM DATE/TIME: 01/31/2017 15:56 [facility] COMPARISON: CHEST SINGLE AP, December 30, 2016, 17:46. INDICATIONS : Shortness of breath. MEDICAL HISTORY : Hypertension. 2 cardiac stents. SURGICAL HISTORY : None. ENCOUNTER: Initial ACUITY: 2 days PAIN SCORE: 8/10 LOCATION: chest FINDINGS: The lungs are clear without infiltrate, nodule, or mass. There is no appreciable pleural effusion fo r technique. Heart and mediastinum are unremarkable. CONCLUSION: No acute cardiopulmonary disease. Susie Linton MD on January 31, 2017 at 16:29 Board Certified Radiologist. This report was verified electronically.
[2017-01-31 17:15] LABS: BLOOD, URINE TRACE (NEG); COMMENT (UR) CULT NOT INDICATED; CULTURE IF INDICATED CULT NOT INDICATED; GLUCOSE,URINE NEG (NEG); KETONE, URINE NEG (NEG); MUCUS URINE FEW /lpf (OCC); NITRITE,URINE NEG (NEG); URINE COLOR YELLOW (YELLW/STRAW)
[2017-01-31 17:27] LABS: ALT (GPT) 10 U/L (12-78)
[2017-01-31 17:29] LABS: ANION GAP 4 MEQ/L (5-15); AST (GOT) 10 U/L (15-37); BICARBONATE 27.7 MEQ/L (21.0-32.0); BLOOD UREA NITROGEN 10 MG/DL (7-18); CHLORIDE 109 MEQ/L (98-107); GLOMERULAR FILTRATION RATE 89 ML/MIN (>89); MAGNESIUM 2.1 MG/DL (1.5-2.5); SODIUM (NA) 141 MEQ/L (136-145)
[2017-01-31 17:32] LABS: ALKALINE PHOSPHATASE 53 U/L (45-117); CREATINE KINASE 133 U/L (39-308); TOTAL BILIRUBIN ADULT 0.3 MG/DL (0.2-1.0)
[2017-01-31] MEDS ORDERED: ONDANSETRON HCL 4 MG/2 ML VIAL IV PRN (17:45)
[2017-01-31] MEDS ORDERED: SODIUM CHLORIDE 0.9% FLUSH 10 ML FLUSH IV FLUSH PRN (17:45)
[2017-01-31] MEDS ORDERED: ACETAMINOPHEN 500 MG CPLT PO PRN (17:45)
[2017-01-31] MEDS ORDERED: METH500T3 PO (18:55)
[2017-01-31] MEDS ORDERED: HYDR12.57 PO (18:56)
[2017-01-31] MEDS ORDERED: NITROGLYCERIN 0.4 MG SL 25 TABS/BTL SL PRN (19:00)
[2017-01-31 19:48] LABS: CREATINE KINASE 129 U/L (39-308)
[2017-01-31] MEDS: SODIUM CHLORIDE 0.9% FLUSH 10 ML FLUSH IV FLUSH SCH ×2 (20:42→20:44)
[2017-02-01] VITALS: PULSE 78
[2017-02-01 00:13] LABS: CREATINE KINASE 180 U/L (39-308)
[2017-02-01 00:15] VITALS: O2SAT 98
[2017-02-01 00:25] LABS: CKMB 1.4 NG/ML (0.5-3.6)
[2017-02-01 04:00] VITALS: PULSE 60
[2017-02-01 08:31] VITALS: PULSE 58
[2017-02-01 08:37] VITALS: BP 144/97; PULSE 61; RESP 18; TEMP 97.9; O2SAT 97
[2017-02-01] MEDS ORDERED: ASPIRIN 325 MG TAB PO SCH (09:00)
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
[2017-02-01] MEDS ORDERED: HYDROCHLOROTHIAZIDE 12.5 MG CAP PO SCH (10:30)
[2017-02-01] MEDS ORDERED: LISINOPRIL 10 MG TAB PO SCH (10:30)
[2017-02-01] MEDS: SODIUM CHLORIDE 0.9% FLUSH 10 ML FLUSH IV FLUSH SCH (10:43)
--- NOTE | 2017-02-01 12:04 | HHI.DCPOC ---
Discharge Care Plan Diagnosis: (1) Dyspnea on exertion (2) Edema of both legs (3) Atypical chest pain (4) Tobacco abuse (5) Hx of coronary artery disease Goals to Promote Your Health * To prevent worsening of your condition and complications * To maintain your health at the optimal level Directions to Meet Your Goals Take your medications as prescribed Follow your dietary instruction Follow activity as directed Keep your appointments as scheduled Take your immunizations and boosters as scheduled If your symptoms worsen call your PCP, if no PCP go to Urgent Care Center or Emergency Room Smoking is Dangerous to Your Health. Avoid second hand smoke Call the 24-hour hour crisis hotline for domestic abuse at Lianna Cosby Feb 01, 2017 12:04
[2017-02-01] MEDS ORDERED: POTASSIUM CHLORIDE 10 MEQ CONTROLLED RELEASE TAB PO ONE (12:30)
[2017-02-01] MEDS ORDERED: FUROSEMIDE 20 MG TAB PO ONE (12:30)
[2017-02-01] MEDS ORDERED: FURO20TA PO (12:42)
[2017-02-01] MEDS ORDERED: POTA10CA PO (12:42)
[2017-02-01 12:57] VITALS: BP 135/83; PULSE 73; RESP 16; TEMP 98.2; O2SAT 96
--- NOTE | 2017-02-01 17:09 | EKG ---
Date Performed: 02/01/2017 Time Performed: 01:39:50 PTAGE: 66 years EKG: Sinus rhythm WITH MARKED SINUS ARRHYTHMIA NONSPECIFIC T-WAVE ABNORMALITY BORDERLINE ECG PREVIOUS TRACING : 02/01/2017 01.39 Since previous tracing, no significant change noted DOCTOR: August Cabezas Interpretating Date/Time 02/01/2017 17:07:56
--- NOTE | 2017-02-01 17:16 | EKG ---
Date Performed: 01/31/2017 Time Performed: 18:11:11 PTAGE: 66 years EKG: Sinus rhythm NORMAL ECG PREVIOUS TRACING : 01/31/2017 14.37 Since previous tracing, no significant change noted DOCTOR: August Cabezas Interpretating Date/Time 02/01/2017 17:14:34
--- NOTE | 2017-02-01 17:17 | EKG ---
Date Performed: 01/31/2017 Time Performed: 14:37:15 PTAGE: 66 years EKG: Sinus rhythm NONSPECIFIC T-WAVE ABNORMALITY BORDERLINE ECG NO PREVIOUS TRACING DOCTOR: August Cabezas Interpretating Date/Time 02/01/2017 17:17:00
[2017-02-01] MEDS ORDERED: LATANOPROST 0.005% OPHT SOLN 2.5 ML BTL EACH EYE SCH (21:00)
== END 2017-02-01 18:18 | disposition home or self-care (01) ==
LOC: NEPE 14:14 → NEDA 18:00 → NEPGCP 20:08
PROVIDERS: ADMIT Internal Medicine Interventional Cardiology; ATTEND Internal Medicine Interventional Cardiology
DX: R07.9 Chest pain, unspecified (principal); R60.0 Localized edema; R06.00 Dyspnea, unspecified; I50.9 Heart failure, unspecified; J44.9 Chronic obstructive pulmonary disease, unspecified; Z88.0 Allergy status to penicillin; Z79.01 Long term (current) use of anticoagulants; D64.9 Anemia, unspecified; C95.91 Leukemia, unspecified, in remission; Z86.73 Personal history of transient ischemic attack (TIA), and cerebral infarction without residual deficits; N40.0 Benign prostatic hyperplasia without lower urinary tract symptoms; I11.0 Hypertensive heart disease with heart failure; K21.9 Gastro-esophageal reflux disease without esophagitis; F17.210 Nicotine dependence, cigarettes, uncomplicated; Z79.899 Other long term (current) drug therapy; R00.1 Bradycardia, unspecified; I25.10 Atherosclerotic heart disease of native coronary artery without angina pectoris
CPT/HCPCS: 71010; 80053; 81001; 82550; 82552; 83735; 83880; 84484; 85025; 85610; 85730; 93005; 93970; 96374; 99285; G0378; J1940